=== PATIENT | male | born 1930 | race Caucasian/White ===

== ENCOUNTER → 2019-01-25 | Outpatient (CLI) | payer MEDICARE, BC ==
[~2019-01-25] MED LIST: ALTACE 5MG5 MG PO; ALTACE2.5 MG PO; CALTRATE 600 +1 TAB PO; DOXAZOCIN; GLUCOSAMINE/CHONDROI PO; KLONOPIN 1MG1 MG PO; MULTI VITAMINS1 TAB PO; VITAMIN D 400400 IU PO
== END ==
LOC: COL.VAS 08:44
DX: Z13.6 Encounter for screening for cardiovascular disorders (principal); I10 Essential (primary) hypertension; I31.3 Pericardial effusion (noninflammatory); I08.1 Rheumatic disorders of both mitral and tricuspid valves

== ENCOUNTER → 2019-04-18 | Outpatient (CLI) | payer MEDICARE, BC ==
[~2019-04-18] MED LIST changes: +KLONOPIN WAFERS2 MG PO; +KLONOPIN2 MG PO; +LASIX 20MG TABL20 MG PO
== END ==
LOC: COL.RAD 11:53
DX: M47.816 Spondylosis without myelopathy or radiculopathy, lumbar region (principal); M51.36 Other intervertebral disc degeneration, lumbar region; M16.0 Bilateral primary osteoarthritis of hip; M76.02 Gluteal tendinitis, left hip; M76.01 Gluteal tendinitis, right hip; F43.8 Other reactions to severe stress

== ENCOUNTER → 2019-05-14 | Outpatient (CLI) | payer MEDICARE, BC | LOC: COL.RAD 08:00 | DX: K21.0 Gastro-esophageal reflux disease with esophagitis (principal); K86.2 Cyst of pancreas; R63.4 Abnormal weight loss | CPT/HCPCS: Q9967 ==

== ENCOUNTER → 2019-05-28 | Outpatient (CLI) | payer MEDICARE, BC | LOC: COL.RAD 10:42 | DX: S22.030A Wedge compression fracture of third thoracic vertebra, initial encounter for closed fracture (principal); M47.814 Spondylosis without myelopathy or radiculopathy, thoracic region; M48.04 Spinal stenosis, thoracic region ==

== ENCOUNTER 2020-11-23 21:08 | Emergency (ER) | payer MEDICARE, BC ==
[2020-11-24 00:25] VITALS: BP 131/70; PULSE 77
[2020-11-24 01:01] LABS: COLLECTION METHOD CLEAN CATCH; MUCOUS Present /lpf; PH 5 (5-8); SQUAMOUS EPITHELIAL None Seen /hpf; URINE APPEARANCE Clear; URINE BACTERIA None Seen /hpf; URINE BILIRUBIN Negative (NEGATIVE); URINE BLOOD 2+ (NEGATIVE); URINE COLOR Yellow; URINE GLUCOSE Negative (NEGATIVE); URINE KETONE Negative (NEGATIVE); URINE LEUKOCYTE ESTERASE Negative (NEGATIVE); URINE NITRATE Negative (NEGATIVE); URINE PROTEIN(semi-quant) Negative (NEGATIVE); URINE UROBILINOGEN Negative (NEGATIVE)
[2020-11-24 01:02] LABS: BASO # 0.1 (0.0-0.2); BASO % 0.4 % (0.0-2.0); EOS # 0.2 (0.0-0.7); EOS % 1.4 % (0-4.0); GRAN # 8.4 (1.4-6.5); GRAN % 66.2 % (42.2-75.2); HEMATOCRIT 43.6 % (42.0-52.0); HEMOGLOBIN 14.4 g/dl (13.5-18.0); LYMPH % 23.2 % (20.0-51.0); MEAN CELL VOLUME 96 fl (80.0-100.0); MEAN CORPUSCULAR HEMOGLOBIN 32 pg (27.0-31.0); MEAN CORPUSCULAR HGB CONC 33 g/dl (33.0-37.0); MEAN PLATELET VOLUME 10.8 fl (7.4-10.4); MONO # 1.1 (0.1-0.6); MONO % 8.5 % (1.7-9.3); PLATELET COUNT 151 K/mm3 (130-400); RED BLOOD COUNT 4.55 M/mm3 (4.20-5.60); REDCELL DISTRIBUTION WIDTH-CV 13.6 % (11.5-14.5)
[2020-11-24 01:05] LABS: ALBUMIN 3.9 gm/dL (3.5-5.0); BILIRUBIN,TOTAL 0.4 mg/dL (0.0-1.0); CALCIUM 9.3 mg/dL (8.4-10.2); CREATININE, serum 1.09 (0.66-1.25); POTASSIUM 4.5 mmol/L (3.4-5.0); TOTAL PROTEIN 6.9 gm/dL (6.4-8.2)
== END 2020-11-24 00:25 | disposition home or self-care (01) ==
LOC: COL.ER 21:08
PROVIDERS: Physician Assistant
DX: B34.9 Viral infection, unspecified (principal); I10 Essential (primary) hypertension